=== PATIENT | male | born 1945 | race Caucasian/White ===

== ENCOUNTER 2017-05-30 21:59 | Emergency (ER) | payer MEDICARE, OTHER ==
[2017-05-30] MEDS ORDERED: Hydromorphone 1 mg/ml Ampule IV ONE (22:31)
[2017-05-30] MEDS ORDERED: Phenergan 25 MG INJ IV ONE (22:31)
[2017-05-30] MEDS ORDERED: Sodium Chloride 0.9% 1000 ML 1,000 ML IV STA (22:31)
--- NOTE | 2017-05-30 22:35 | ERPHSYRPT ---
- History of Present Illness Time Seen by Provider: 05/30/17 22:25 Historian: patient, family () Exam Limitations: no limitations Patient Subjective Stated Complaint: Pt sts onset of rt abd pain, N/V approx 45- 60 minutes after eating [employer] chicken. Pt sts pain constant - severe ache, rates pain 8/10. Sts pain initially started in lower abd and then radiated down into right testicle. Sts pain is now "down deep" in right side. Vomiting x 4-5 episodes. No diarrhea. Last BM today - normal for him. 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 Triage Nursing Assessment: Pt alert, oriented, answers all questions appropriately. Skin p/w/d, resps non-labored. Pt ambulatory to tx room holding abd. Steady gait noted. Lung sounds CTA bilat, non-labored. Heart RRR. ABD soft non-tender with light palpation. + bowel sounds noted. Physician History: ABOUT 5.5 HOURS AGO PT ATE FRIED CHICKEN & ENDER SLAW AND 20 MINUTES LATER STARTED WITH LOWER MID ABDOMINAL PAIN RADIATING TO THE RIGHT TESTICLE WITH VOMITING X7 WITHOUT BLOOD. PT DENIES CHEST PAIN, SHORTNESS OF AIR, FEVER, CHILLS ; ADMITS TO OCCASIONAL VERTIGO(ONGOING). Allergies/Adverse Reactions: amoxicillin [Amoxicillin] Adverse Reaction (Verified 05/30/17 22:27) ADAIR STOMACH cephalexin [Cephalexin] Adverse Reaction (Verified 05/30/17 22:27) ADAIR STOMACH Home Medications: Albuterol Sulfate [Proair Hfa] 8.5 gm IH QID PRN 10/21/12 [History] Azelastine HCl 1 drop OP BID 10/21/12 [History] Fexofenadine HCl 180 mg PO BID 10/21/12 [History] B Infantis/B Ani/B Greg/B Bifid [Probiotic 4X Caplet] 1 each PO DAILY 04/11/16 [ History] Diphenhydramine HCl [Sleep Aid] 50 mg PO DAILY 04/11/16 [History] Multivitamin [Multivitamins] 1 each PO DAILY 04/11/16 [History] Bladen-3 Fatty Acids [Fish Oil] 1,000 mg PO DAILY 04/11/16 [History] Vitamin E 400 unit PO DAILY 04/11/16 [History] Linaclotide [Linzess] 0 mcg PO DAILY 05/30/17 [History] Omeprazole 20 MG [Prilosec 20 mg] 20 mg PO DAILY 05/30/17 [History] Hx Tetanus, Diphtheria Vaccination/Date Given: Yes Hx Influenza Vaccination/Date Given: Yes Hx Pneumococcal Vaccination/Date Given: No Immunizations Up to Date: Yes - Review of Systems Constitutional: No Fever Respiratory: No Dyspnea Cardiac: No Chest Pain Abdominal/Gastrointestinal: Abdominal Pain, Vomiting Genitourinary Symptoms: Testicle Pain Neurological: Vertigo All Other Systems: Reviewed and Negative - Past Medical History Pertinent Past Medical History: Yes Neurological History: No Pertinent History ENT History: No Pertinent History Cardiac History: No Pertinent History Respiratory History: No Pertinent History Endocrine Medical History: No Pertinent History Musculoskeletal History: No Pertinent History GI Medical History: Crohns Disease, Gallbladder Disease, Irritable Bowel History: No Pertinent History Psycho-Social History: No Pertinent History Male Reproductive Disorders: No Pertinent History - Past Surgical History Past Surgical History: Yes Neuro Surgical History: No Pertinent History Cardiac: No Pertinent History Respiratory: No Pertinent History Gastrointestinal: Appendectomy, Cholecystectomy Genitourinary: No Pertinent History Musculoskeletal: No Pertinent History Male Surgical History: No Pertinent History Other Surgical History: mole removed from abdomen - Social History Smoking Status: Former smoker Exposure to second hand smoke: No Drug Use: none Patient Lives Alone: No - Nursing Vital Signs Nursing Vital Signs: Initial Vital Signs Temperature 97.5 F 05/30/17 22:14 Pulse Rate 81 05/30/17 22:14 Respiratory Rate 20 05/30/17 22:14 Blood Pressure 179/86 05/30/17 22:14 O2 Sat by Pulse Oximetry 99 05/30/17 22:14 Pain Scale Pain Intensity 1 - Physical Exam General Appearance: alert Eye Exam: PERRL/EOMI Ears, Nose, Throat Exam: TMs normal, pharynx normal, moist mucous membranes Neck Exam: normal inspection Respiratory Exam: lungs clear Cardiovascular Exam: normal heart sounds Gastrointestinal/Abdomen Exam: soft, tenderness (MILD DIFFUSE TENDERNESS), other (B.S. MILDLY HYPOACTIVE AND NORMOTONIC) Male Genitalia Exam: testicular tenderness (MILD RIGHT TESTICULAR TENDERNESS), No hernia Back Exam: normal range of motion Extremity Exam: normal inspection, No pedal edema Neurologic Exam: alert, cooperative Skin Exam: warm, dry SpO2 Interpretation: normal SpO2: 99 Oxygen Delivery: Room Air - Course Nursing assessment & vital signs reviewed: Yes - CT Exams Abdomen/Pelvis CT Interpretation: Tele-radiologist Report (SEVERE RIGHT HYDRONEPHROISIS, PERINEPHRIC STRANDING AND URETERAL DILATATION SECONDARY TO A 1 CM STONE IN THE DISTAL RIGHT URETER. ) - Radiology Ultrasound Exam Scrotal Ultrasound: Other (TECH REPORT: NORMAL EXAM) Ordered Tests: Active Orders 24 hr Category Date Time Status Clean Catch Urine Specimen STAT Care 05/30/17 22:31 Active IV Insertion STAT Care 05/30/17 22:31 Active ABDOMEN AND PELVIS W/0 CONTRAS [CT] Stat Exams 05/30/17 22:31 Taken TESTICLE [US] Stat Exams 05/30/17 22:43 Taken AMYLASE Stat Lab 05/30/17 22:20 Completed CBC W DIFF Stat Lab 05/30/17 22:20 Completed CMP Stat Lab 05/30/17 22:20 Completed LIPASE Stat Lab 05/30/17 22:20 Completed MAG [MAGNESIUM] Stat Lab 05/30/17 22:20 Completed UA W/ MICROSCOPIC Stat Lab 05/30/17 22:40 Completed Medication Summary Discontinued Medications Generic Name Dose Route Start Last Admin Trade Name Freq PRN Reason Stop Dose Admin Hydromorphone HCl 1 mg 05/30/17 22:31 05/30/17 22:46 Hydromorphone 1 Mg/Ml Ampule IV 05/30/17 22:32 1 mg STAT ONE Administration Hydromorphone HCl Confirm 05/30/17 22:36 Hydromorphone 1 Mg/Ml Ampule Administered 05/30/17 22:37 Dose 1 mg .ROUTE .STK-MED ONE Sodium Chloride 1,000 mls @ 999 mls/hr 05/30/17 22:31 05/30/17 22:45 Sodium Chloride 0.9% 1000 Ml IV 05/30/17 23:31 999 mls/hr .Q1H1M STA Administration Sodium Chloride Confirm 05/30/17 22:36 Sodium Chloride 0.9% 1000 Ml Administered 05/30/17 22:37 Dose 1,000 mls @ ud .ROUTE .STK-MED ONE Promethazine HCl 12.5 mg 05/30/17 22:31 05/30/17 22:46 Phenergan 25 Mg Inj IV 05/30/17 22:32 12.5 mg STAT ONE Administration Promethazine HCl Confirm 05/30/17 22:36 Phenergan 25 Mg Inj Administered 05/30/17 22:37 Dose 25 mg .ROUTE .STK-MED ONE Lab/Rad Data: Laboratory Result Diagrams 05/30/17 22:20 05/30/17 22:20 Laboratory Results 05/30/17 05/30/17 05/30/17 Range/Units 22:40 22:20 22:20 WBC (4.0-10.5) K/mm3 RBC (4.1-5.6) M/mm3 Hgb (12.5-18.0) gm/dl Hct (42-50) % MCV (78-100) fl MCH (26-32) pg MCHC (32-36) g/dl RDW (11.5-14.0) % Plt Count (150-450) K/mm3 MPV (6-9.5) fl Gran % (36.0-66.0) % Lymphocytes % (24.0-44.0) % Monocytes % (0.0-12.0) % Eosinophils % (0.00-5.0) % Basophils % (0.0-0.4) % Basophils # (0-0.4) Sodium 144 (136-145) mEq/L Potassium 4.1 (3.5-5.1) mEq/L Chloride 106 (98-107) mEq/L Carbon Dioxide 27.3 (21-32) mEq/L Anion Gap 15.0 (5-15) MEQ/L BUN 21 H (9-20) mg/dL Creatinine 1.41 H (0.55-1.30) mg/dl Estimated GFR 53 ML/MIN Glucose 112 H (70-110) MG/DL Calcium 9.1 (8.5-10.1) mg/dL Magnesium 1.7 L (1.8-2.4) mg/dL Total Bilirubin 0.40 (0.2-1.0) mg/dL AST 17 (15-37) U/L ALT 23 (12-78) U/L Alkaline Phosphatase 100 (46-116) U/L Serum Total Protein 7.4 (6.4-8.2) gm/dL Albumin 3.7 (3.4-5.0) g/dL Amylase 64 (25-115) U/L Lipase 221 (73-393) U/L Ur Collection Type VOID Urine Color YELLOW (YELLOW) Urine Appearance CLEAR (CLEAR) Urine pH 9.0 (5-6) Ur Specific [place] 1.000 (1.005-1.025) Urine Protein NEGATIVE (Negative) Urine Ketones NEGATIVE (NEGATIVE) Urine Blood 250 (0-5) Adolfo/ul Urine Nitrite NEGATIVE (NEGATIVE) Urine Bilirubin NEGATIVE (NEGATIVE) Urine Urobilinogen NORMAL (0-1) mg/dL Ur Leukocyte Esterase NEGATIVE (NEGATIVE) Urine Microscopic RBC 10-15 (0-2) /HPF Urine Microscopic WBC 0-2 (0-5) /HPF Ur Epithelial Cells RARE (FEW) /HPF Urine Bacteria FEW (NEGATIVE) /HPF Urine Glucose NEGATIVE (NEGATIVE) mg/dL Specimen Received 05/30/17222905/30/17 Range/Units 22:20 WBC 12.3 H (4.0-10.5) K/mm3 RBC 4.93 (4.1-5.6) M/mm3 Hgb 15.0 (12.5-18.0) gm/dl Hct 43.0 (42-50) % MCV 87.2 (78-100) fl MCH 30.4 (26-32) pg MCHC 34.9 (32-36) g/dl RDW 13.7 (11.5-14.0) % Plt Count 172 (150-450) K/mm3 MPV 9.9 H (6-9.5) fl Gran % 81.7 H (36.0-66.0) % Lymphocytes % 12.5 L (24.0-44.0) % Monocytes % 4.7 (0.0-12.0) % Eosinophils % 0.9 (0.00-5.0) % Basophils % 0.2 (0.0-0.4) % Basophils # 0.02 (0-0.4) Sodium (136-145) mEq/L Potassium (3.5-5.1) mEq/L Chloride (98-107) mEq/L Carbon Dioxide (21-32) mEq/L Anion Gap (5-15) MEQ/L BUN (9-20) mg/dL Creatinine (0.55-1.30) mg/dl Estimated GFR ML/MIN Glucose (70-110) MG/DL Calcium (8.5-10.1) mg/dL Magnesium (1.8-2.4) mg/dL Total Bilirubin (0.2-1.0) mg/dL AST (15-37) U/L ALT (12-78) U/L Alkaline Phosphatase (46-116) U/L Serum Total Protein (6.4-8.2) gm/dL Albumin (3.4-5.0) g/dL Amylase (25-115) U/L Lipase (73-393) U/L Ur Collection Type Urine Color (YELLOW) Urine Appearance (CLEAR) Urine pH (5-6) Ur Specific [place] (1.005-1.025) Urine Protein (Negative) Urine Ketones (NEGATIVE) Urine Blood (0-5) Adolfo/ul Urine Nitrite (NEGATIVE) Urine Bilirubin (NEGATIVE) Urine Urobilinogen (0-1) mg/dL Ur Leukocyte Esterase (NEGATIVE) Urine Microscopic RBC (0-2) /HPF Urine Microscopic WBC (0-5) /HPF Ur Epithelial Cells (FEW) /HPF Urine Bacteria (NEGATIVE) /HPF Urine Glucose (NEGATIVE) mg/dL Specimen Received - Progress Discussed with Dr.: Other (SPOKE WITH DR HUNG(UROLOGIST)([id number]) WHO WILL CONSULT AND REMOVE KIDNEY STONE TODAY. SPOKE WITH DR CRAWFORD(HOSPITALIST)([id number]) WHO ACCEPTED PT FOR TRANSFER TO [facility] A DIRECT ADMISSION.) - Departure Time of Disposition: 01:12 Departure Disposition: Transfer ([facility]) Clinical Impression: RIGHT RENAL COLIC Condition: Stable Critical Care Time: No Referrals: Sae MALIK [Primary Care Provider] -
[2017-05-30] MEDS ORDERED: Phenergan 25 MG INJ ONE (22:36)
[2017-05-30] MEDS ORDERED: Hydromorphone 1 mg/ml Ampule ONE (22:36)
[2017-05-30] MEDS ORDERED: Sodium Chloride 0.9% 1000 ML 1,000 ML ONE (22:36)
[2017-05-30 22:41] LABS: BASOPHIL % 0.2 % (0.0-0.4); Eosinophil % 0.9 % (0.00-5.0); Granulocytes % 81.7 % (36.0-66.0); Lymphocytes % 12.5 % (24.0-44.0); Mean Cell Volume 87.2 fl (78-100); Mean Corpuscular Hemoglobin 30.4 pg (26-32); Mean Platelet Volume 9.9 fl (6-9.5); Monocytes % 4.7 % (0.0-12.0); Platelet Count 172 K/mm3 (150-450); Red Blood Count 4.93 M/mm3 (4.1-5.6); Red Cell Distribution Width 13.7 % (11.5-14.0); White Blood Count 12.3 K/mm3 (4.0-10.5)
[2017-05-30 22:59] LABS: ALBUMIN 3.7 g/dL (3.4-5.0); BILIRUBIN,TOTAL 0.4 mg/dL (0.2-1.0); Carbon Dioxide 27.3 mEq/L (21-32); Potassium 4.1 mEq/L (3.5-5.1); Total Protein 7.4 gm/dL (6.4-8.2)
[2017-05-30 23:03] LABS: Bilirubin NEGATIVE (NEGATIVE); Blood 250 Ery/ul (0-5); COMPLETE URINE MICROSCOPIC? YES; Collection Type VOID; Glucose NEGATIVE (NEGATIVE); Leukocyte Esterase NEGATIVE (NEGATIVE)
[2017-05-30 23:04] LABS: ADD URINE CULTURE? NO (NO); Bacteria FEW /HPF (NEGATIVE); Epithelial Cells RARE /HPF (FEW); WBC 0-2 /HPF (0-5)
[2017-05-31 01:00] VITALS: BP 140/67; PULSE 84
[2017-05-31 01:13] VITALS: O2SAT 99
[2017-05-31] MEDS ORDERED: Sodium Chloride 0.9% 1000 ML 1,000 ML IV SCH (01:15)
[2017-05-31] MEDS ORDERED: Sodium Chloride 0.9% 1000 ML 1,000 ML ONE (01:18)
[2017-05-31] MEDS ORDERED: TORAdol 30 mg Injection IV ONE (01:22)
[2017-05-31] MEDS ORDERED: TORAdol 30 mg Injection ONE (01:24)
--- NOTE | 2017-05-31 15:34 | XRAY ---
Exam: Testicular ultrasound from 05/30/2017. Comparison: None. Indication: Right testicle pain and right lower quadrant abdominal pain. Findings: The right testicle measures 5.1 cm by 2.4 cm x 3.8 cm and reveals a uniform attenuation. No focal mass or microcalcifications are seen. Normal color blood flow and Doppler signal are seen within the right testicle. The head of the right epididymis measures 1.4 cm x 1.0 cm and appears unremarkable. The left testicle measures 5.2 cm x 2.7 cm x 3.6 cm. It also demonstrates a uniform normal appearing echo pattern. No focal mass or microlithiasis is seen. Normal color blood flow and Doppler signal are seen within the left testicle. No hydrocele is seen on either side. The head of the left epididymis measures 1.2 cm by 1.0 cm. No abnormality is seen at this site. Impression: 1. Unremarkable bilateral testicular ultrasound. Specifically, I see no evidence of testicular torsion at this time.
--- NOTE | 2017-05-31 20:41 | XRAY ---
Exam: CT of the abdomen and pelvis without IV contrast from 05/30/2017. CTDI: 22.57 Comparison: CT of the abdomen and pelvis with IV contrast from 10/21/2012. Indication: 71-year-old male with right lower quadrant abdominal pain with nausea and vomiting, no history of renal stones or hematuria, patient has personal history of prior cholecystectomy, appendectomy, and umbilical hernia repair. Technique: Non-IV contrast axial images were obtained through the abdomen and pelvis. Reconstructed coronal and sagittal images were created and reviewed. Findings: Within the lung bases there are multiple granulomatous calcifications overlying the right infrahilar projection as well as a calcified granuloma at the posterior right lung base. In addition, there is a partially calcified 9 mm in diameter nodule within the left posterior lung sulcus which is not appreciably changed in size dating back to 10/21/2012. Some fibrotic scarring is again seen at the posterior left lung base with mild bullous changes. On axial images #10 through #14, I see an oblong radiopacity at the posterior medial left lung base measuring about 2.2 cm x 1.2 cm in cross section on axial image #12. This appears to be at this site of some curvilinear scarring on the prior study from 10/21/2012 on axial image #16. I believe it is likely this relates to focal atelectasis or more pronounced scarring. A developing mass is not completely excluded, but is believed to be less likely. A follow-up CT examination in 6 months may be helpful for monitoring. No posterior pleural fluid is seen. I believe there is a minimal hiatal hernia representing no change. The liver is of normal size and reveals scattered small calcified granulomas. The gallbladder is surgically absent. No intrahepatic biliary duct distention is seen. The spleen appears at the upper limits of normal to minimally enlarged measuring about 13.3 cm in greatest length on coronal image #95. This is similar to the prior study from 10/21/2012. Small scattered calcified splenic granulomas are seen. The pancreas and adrenal glands appear unremarkable. The right kidney is asymmetrically swollen and reveals significant abnormal perirenal stranding. I also note significant right-sided hydronephrosis and hydroureter down to the level of an obstructing prominent oval-shaped distal right ureteral stone measuring about 1.0 cm x 0.5 cm in cross section on axial image #78 and about 1.1 cm in length on the coronal and sagittal images. This is seen just above the level of the right hip joint within the lower right hemipelvis. I believe this is causing the patient's symptoms. No other calcifications are seen within either kidney or ureter. The left kidney and ureter appear unremarkable. No urinary bladder stone is seen. Some atherosclerotic vascular calcification is seen within the abdominal aorta and iliac arteries. The distal abdominal aorta just above the aortic bifurcation dilates to about 2.5 cm in width and 2.4 cm in AP depth on axial image #50, but a true aneurysm is not seen. Nevertheless, I believe this is a bit more dilated than that seen on the exam of 10/21/2012. Consider follow-up in 1 year for monitoring purposes. Measures should be taken to control the patient's blood pressure. No abnormal retroperitoneal lymphadenopathy is seen. No free intraperitoneal air is seen. No ventral abdominal wall hernia seen. The appendix is surgically absent. Minimal sigmoid colon diverticulosis without evidence of diverticulitis is seen. There is no evidence of abnormal bowel distention or obstruction. A mild amount of scattered stool is seen throughout the colon, the largest amount seen within the cecum. Pelvic lymph nodes are not enlarged. The seminal vesicles appear unremarkable. The prostate gland measures 5.2 cm in width and 3.9 cm in AP dimension on axial image #88 suggesting slight enlargement. No free intraperitoneal fluid is seen. Mild symmetric fat-containing bilateral inguinal hernias are seen. No abnormal lymphadenopathy is seen within either groin. The skeleton reveals no acute fractures or other suspicious bone lesions. There is mild to moderate degenerative disc disease at L5-S1. Mild facet joint osteoarthritic changes are seen at L4-L5, left greater than right, and at L5-S1. Impression: 1. Asymmetric right renal swelling with significant perinephric stranding and hydronephrosis as well as right ureteral distention caused by an obstructing stone within the distal right ureter measuring about 1.1 cm in length and 1.0 cm x 0.5 cm in cross section. 2. [place] 2.2 cm x 1.2 cm soft tissue density at the posterior medial left lung base which likely relates to focal atelectasis or more pronounced scarring than that seen on the prior CT exam of 10/21/2012 at this location. A lung mass is not completely excluded. I would recommend a follow-up CT study in 6 months for monitoring purposes. 3. Minimal hiatal hernia, borderline to slight splenomegaly, minimal sigmoid diverticulosis, slight enlargement of the prostate gland, and small bilateral fat-containing inguinal hernias are seen. 4. There is also slight distention of the distal abdominal aorta just above the bifurcation measuring up to a maximum of 2.5 cm in width. This is larger than that seen on the exam of 10/21/2012. This is not aneurysmal as of yet, but I would recommend continued monitoring in 1 year.
== END 2017-05-31 01:58 ==
LOC: ED 21:59
DX: N23 Unspecified renal colic (principal); R11.2 Nausea with vomiting, unspecified; Z79.899 Other long term (current) drug therapy; R10.9 Unspecified abdominal pain; N50.819 Testicular pain, unspecified
CPT/HCPCS: 36000; 36415; 74176; 76870; 80053; 81000; 82150; 83690; 83735; 85025; 96360; 96361; 96374; 96375; 99285; J1170; J1885; J2550

== ENCOUNTER 2018-09-13 12:27 | Day surgery (SDC) | payer MEDICARE, OTHER ==
[~2018-09-13 12:27] MED LIST: Lactated Ringers 1,000 ML IV ONE; Lactated Ringers 1,000 ML IV SCH; Sensorcaine 0.25% 10 ML ONE
[2018-09-13] MEDS ORDERED: SUBLIMAZE 100 MCG/2 ML IV ONE (12:28)
[2018-09-13] MEDS ORDERED: TORAdol 30 mg Injection IV ONE (12:28)
[2018-09-13] MEDS ORDERED: Zofran 4 MG/2 ML VIAL IV ONE (12:28)
[2018-09-13] MEDS ORDERED: Decadron 4 MG INJ IV ONE (12:28)
[2018-09-13] MEDS ORDERED: DIPRIVAN 200 MG/20 ML IV ONE (12:28)
[2018-09-13] MEDS ORDERED: CEFAZOLIN 2 GM-D5W BAG** 2 GM/50 ML ML IV ONE (13:44)
[2018-09-13] MEDS ORDERED: CEFAZOLIN 2 GM-D5W BAG** 2 GM/50 ML ML IV SCH (14:00)
[2018-09-13] MEDS ORDERED: KEFZOL 1 GM ONE (14:35)
--- NOTE | 2018-09-13 15:23 | OP ---
SURGERY DATE/TIME: 09/13/2018 1435 PREOPERATIVE DIAGNOSIS: Umbilical hernia. POSTOPERATIVE DIAGNOSIS: Umbilical hernia. PROCEDURE: Umbilical hernia revision. SURGEON: Joshua Herrera M.D. ANESTHESIA: General. COMPLICATIONS: None. CONDITION: Stable. INDICATION: The patient has painful umbilicus, possible hernia. DESCRIPTION OF PROCEDURE: Taken to surgery. General anesthetic. Routine prep and drape. Time out performed. Incision was fashioned vertically. This whole area was redissected. There were weak spots that were reinforced with suture #0 Vicryl. All the old sutures were taken out. There is a diastasis above this. The patient tolerated the procedure satisfactorily. It looked much more comfortable, much smoother and much more reinforced subsequently.
[2018-09-13] MEDS ORDERED: NORCO 7.5/325 MG TAB PO PRN (16:11)
[2018-09-13] MEDS ORDERED: DILAUDID 2 MG INJECTION ONE (16:51)
[2018-09-13] MEDS ORDERED: DILAUDID 2 MG INJECTION IV STA (16:53)
[2018-09-13] MEDS ORDERED: DILAUDID 2 MG INJECTION IV SCH (17:00)
[2018-09-13 17:25] VITALS: BP 153/92; PULSE 70; O2SAT 95
== END 2018-09-13 17:38 | disposition home or self-care (01) ==
LOC: SDC 12:27
PROVIDERS: ATTEND Surgery
DX: K64.9 Unspecified hemorrhoids (principal)
CPT/HCPCS: 99100; J0690; J1100; J1170; J1885; J2405; J2704; J3010; L0625; A9270-GY